=== PATIENT | female | born 1955 | race Two or more races ===

== ENCOUNTER 2024-12-30 15:18 | Emergency (ER) | payer OTHER ==
[2024-12-30 15:35] VITALS: BP 147/76; PULSE 74; RESP 18; TEMP 98.4
[2024-12-30] MEDS ORDERED: POLYETHYLENE GLYCOL (HEALTHYLAX) 3350 17 GM PACKET ONE (17:05)
[2024-12-30] MEDS: POLYETHYLENE GLYCOL (HEALTHYLAX) 3350 17 GM PACKET PO ONE (17:07)
[2024-12-30 17:11] LABS: ABSOLUTE IMMATURE GRANULOCYTES 0.02 x10^3/uL (0.0-0.031); BASOPHILS # 0.03 x10^3/uL (0.01-0.08); EOSINOPHIL % 0.8 % (0.7-5.8); EOSINOPHILS # 0.07 x10^3/uL (0.04-0.36); MCHC 32.0 g/dl (32.2-35.5); MEAN CELL VOLUME 90.6 fl (79.4-94.8); MEAN PLT VOLUME 9.4 fl (9.4-12.3); MONOCYTE # 0.39 x10^3/uL (0.24-0.86); MONOCYTE % 4.7 % (4.7-12.5); RDW 14.6 % (12.4-16.4)
[2024-12-30 17:49] LABS: GLUCOSE,RANDOM 97.0 mg/dL (74-106); TOT PROT 7.1 g/dl (6.4-8.2)
[2024-12-30 17:50] LABS: CO2 27.0 mmol/L (21-32)
[2024-12-30 17:52] LABS: ALK PHOS 56.0 U/L (40-150)
[2024-12-30 17:55] LABS: SGOT/AST 21.0 U/L (5-34); SGPT/ALT 21.0 U/L (0-55)
[2024-12-30 18:10] LABS: CREATININE 0.63 mg/dL (0.55-1.3)
[2024-12-30] MEDS: LIDOCAINE VISCOUS 2% ORAL/TOP 100 ML BOTTLE MM ONE (18:22)
== END 2024-12-30 20:19 | disposition home or self-care (01) ==
LOC: JER 15:18
DX: K59.00 Constipation, unspecified (principal); R10.32 Left lower quadrant pain
CPT/HCPCS: 36415; 80053; 83690; 85025; 99283-25